=== PATIENT | female | born 1940 | race Caucasian/White ===

== ENCOUNTER 2023-06-17 10:46 | Inpatient (IN) | payer MEDICARE, OTHER ==
[2023-06-17 11:20] LABS: Anisocytosis Slight; Basophils % (A) 0 %; Eosinophils # (A) 0.1 k/uL (0-0.7); Eosinophils % (A) 0 %; HCT 32.8 % (34.0-46.0); HGB 10.6 gm/dL (11.4-16.0); Lymphocytes # (A) 0.9 k/uL (1.0-4.8); Lymphocytes % (A) 9 %; MCH 30.4 pg (25.0-35.0); MCHC 32.3 g/dL (31.0-37.0); MCV 93.9 fL (80.0-100.0); Mean Platelet Volume 9.5; Monocytes # (A) 0.5 k/uL (0-1.0); Monocytes % (A) 5 %; Neutrophils # (A) 8.6 k/uL (1.3-7.7); Neutrophils % (A) 84 %; Platelet Count 223 k/uL (150-450); RDW 16.6 % (11.5-15.5); WBC 10.2 k/uL (3.8-10.6)
[2023-06-17 11:26] LABS: Appearance,Urine Clear (Clear); Bilirubin,Urine Negative (Negative); Blood,Urine Negative (Negative); Color,Urine Light Yellow; Glucose,Urine (UA) Negative (Negative); Ketones,Urine Negative (Negative); Leukocyte Esterase,Urine Negative (Negative); Nitrite,Urine Negative (Negative); Protein,Urine Negative (Negative); Specific Gravity,Urine 1.022 (1.001-1.035); Urobilinogen,Urine <2.0 mg/dL (<2.0)
[2023-06-17 11:31] LABS: ALT 17 U/L (4-34); AST 24 U/L (14-36); African American GFR (CKD) 47 (>60 ml/min/1.73 sqM); Albumin 3.6 g/dL (3.5-5.0); Alkaline Phosphatase 87 U/L (38-126); Anion Gap 8 mmol/L; Blood Urea Nitrogen 52 mg/dL (7-17); Calcium 8.9 mg/dL (8.4-10.2); Carbon Dioxide 26 mmol/L (22-30); Chloride 104 mmol/L (98-107); Glucose 132 mg/dL (74-99); Non-African American GFR(CKD) 41 (>60 ml/min/1.73 sqM); Potassium 4.4 mmol/L (3.5-5.1); Sodium 138 mmol/L (137-145); Total Bilirubin 0.6 mg/dL (0.2-1.3); Total Protein 6.3 g/dL (6.3-8.2)
[2023-06-17 11:35] LABS: INR 0.8 (<1.2); Prothrombin Time 9.5 sec (10.0-12.5)
[2023-06-17 11:38] LABS: Partial Thromboplastin Time 21.8 sec (22.0-30.0)
--- NOTE | 2023-06-17 11:38 | ED ---
General Adult HPI - General Chief complaint: Shortness of Breath Stated complaint: AMS Time Seen by Provider: 06/17/23 10:50 Source: EMS Mode of arrival: EMS Limitations: no limitations - History of Present Illness Initial comments: 83-year-old female with past medical history of developmental delay who presents emergency department with shortness of breath. She does present from [facility]. The niece provides the history. States that the patient was recently hospitalized at [facility] and then transferred down to [facility]. Patient had an increase in her Risperdal dose and had a change in her mental status. They thought that the patient was having questionable seizures and therefore she was hospitalized for 2 days. During her hospitalization the niece thought that the patient was having a wet cough with shortness of breath. They treated her with IV Lasix and discharged her back to her facility. At [facility] the physician noted that the patient was continuing to be short of breath with a wet cough. He started her on azithromycin yesterday. He also ordered albuterol treatments however the insurance did not approve of this. This morning the patient was transferred to our facility due to hypoxia. EMS found the patient to be saturating 81% on room air. Patient does not wear oxygen. She has no underlying lung conditions such as asthma or COPD. The patient does have a low-grade fever. No nausea or vomiting. No sick contacts. Patient denies any chest pain. No other alleviating, precipitating modifying factors - Related Data Home Medications Medication Instructions Recorded Confirmed Acetaminophen [Tylenol Arthritis] 650 mg PO TID 06/17/23 06/17/23 Albuterol Nebulized [Ventolin 2.5 mg INHALATION RT-TID 06/17/23 06/17/23 Nebulized] Ammonium Lactate Lotion 1 applic TOPICAL BID PRN 06/17/23 06/17/23 [Lac-Hydrin 12% Lotion] Azithromycin [Zithromax Z Pack] See Taper PO DIRECTED 06/17/23 06/17/23 Benzonatate [Tessalon Perles] 200 mg PO TID PRN 06/17/23 06/17/23 Benztropine Mesylate [Cogentin] 0.5 mg PO DAILY 06/17/23 06/17/23 Cholecalciferol [Vitamin D3 (25 25 mcg PO DAILY 06/17/23 06/17/23 Mcg = 1000 Iu)] Levothyroxine Sodium [Synthroid] 75 mcg PO DAILY 06/17/23 06/17/23 Loperamide [Imodium] 2 mg PO DIRECTED PRN 06/17/23 06/17/23 Loratadine [Claritin] 10 mg PO HS 06/17/23 06/17/23 Melatonin 10 mg PO HS 06/17/23 06/17/23 Omeprazole 40 mg PO DAILY 06/17/23 06/17/23 amLODIPine [Norvasc] 10 mg PO DAILY 06/17/23 06/17/23 guaiFENesin [guaiFENesin Oral 1 dose PO DIRECTED 06/17/23 06/17/23 Solution] lisinopriL [Zestril] 10 mg PO HS 06/17/23 06/17/23 risperiDONE [RisperDAL] 0.5 mg PO BID 06/17/23 06/17/23 Allergies Allergy/AdvReac Type Severity Reaction Status Date / Time No Known Allergies Allergy Verified 06/17/23 11:35 Review of Systems ROS Statement: Those systems with pertinent positive or pertinent negative responses have been documented in the HPI. ROS Other: All systems not noted in ROS Statement are negative. Past Medical History Past Medical History: Unable to Obtain Past Surgical History: Unable to Obtain General Exam Limitations: altered mental status General appearance: alert, in no apparent distress Head exam: Present: atraumatic, normocephalic, normal inspection Eye exam: Present: normal appearance ENT exam: Present: normal exam, mucous membranes moist Neck exam: Present: normal inspection. Absent: tenderness, meningismus, lymphadenopathy Respiratory exam: Present: rales Cardiovascular Exam: Present: regular rate, normal rhythm, normal heart sounds. Absent: systolic murmur, diastolic murmur, rubs, gallop, clicks GI/Abdominal exam: Present: soft, normal bowel sounds. Absent: distended, tenderness, guarding, rebound, rigid Course Vital Signs 06/17/23 06/17/23 06/17/23 10:47 10:50 10:57 Temperature 100.3 F H Pulse Rate 86 Respiratory 20 18 Rate Blood Pressure 118/53 O2 Sat by Pulse 83 L 88 L Oximetry 06/17/23 06/17/23 06/17/23 10:59 11:02 11:30 Temperature 98.6 F Pulse Rate 74 65 Respiratory 17 20 Rate Blood Pressure 114/48 114/55 O2 Sat by Pulse 88 L 90 L 97 Oximetry 06/17/23 06/17/23 06/17/23 12:05 13:00 14:09 Temperature 97.6 F Pulse Rate 64 64 60 Respiratory 19 16 17 Rate Blood Pressure 105/47 109/52 101/46 O2 Sat by Pulse 97 99 98 Oximetry 06/17/23 06/17/23 06/17/23 15:15 16:07 17:27 Temperature 97.8 F 97.8 F Pulse Rate 66 62 61 Respiratory 17 17 17 Rate Blood Pressure 115/49 106/46 102/49 O2 Sat by Pulse 97 98 95 Oximetry - Reevaluation(s) Reevaluation #1: Source of infection is identified at 1150 as patient has chest x-ray which demonstrates pneumonia 06/17/23 14:18 Medical Decision Making - Medical Decision Making Was pt. sent in by a medical professional or institution (, PA, CALENDER MACHINE OPERATOR HELPER, urgent care, hospital, or custodial...) When possible be specific @ -Patient sent in from her ECF home Did you speak to anyone other than the patient for history (EMS, parent, family, police, friend...)? What history was obtained from this source @ -Spoke with the patient's niece for history Did you review nursing and triage notes (agree or disagree)? Why? @ -I reviewed and agree with nursing and triage notes Were old charts reviewed (outside hosp., previous admission, EMS record, old EKG, old radiological studies, urgent care reports/EKG's, custodial records)? Report findings @ -I reviewed the patient's medication list from her ECF home Differential Diagnosis (chest pain, altered mental status, abdominal pain women, abdominal pain men, vaginal bleeding, weakness, fever, dyspnea, syncope, headache, dizziness, GI bleed, back pain, seizure, CVA, palpatations, mental health, musculoskeletal)? @ -Differential Dyspnea: Coronary syndrome, arrhythmia, tamponade, asthma, COPD, pulmonary embolism, pneumonia, pneumothorax, pulmonary effusion, anaphylaxis, diabetic ketoacidosis, flailed chest, pulmonary contusion, diaphragmatic rupture, anemia, neuromuscular, this is not meant to be an all-inclusive list. EKG interpreted by me (3pts min.). @ -Yes and demonstrates sinus rhythm with a rate of 75. W[place] interval 177. QRS 97. QTc of 383. No acute ST segment elevation. Inverted T wave lead III X-rays interpreted by me (1pt min.). @ -Yes and demonstrates left lower lobe pneumonia CT interpreted by me (1pt min.). @ -None done U/S interpreted by me (1pt. min.). @ -None done What testing was considered but not performed or refused? (CT, X-rays, U/S, labs)? Why? @ -None What meds were considered but not given or refused? Why? @ -None Did you discuss the management of the patient with other professionals (professionals i.e. Dr., PA, CALENDER MACHINE OPERATOR HELPER, lab, RT, psych nurse, healthcare social worker, solar mechanical engineer, teacher, chief fundraising officer, lining caser)? Give summary @ -Spoke with Dr. Corley for admission Was smoking cessation discussed for >3mins.? @ -No Was critical care preformed (if so, how long)? @ -No Were there social determinants of health that impacted care today? How? (Homelessness, low income, unemployed, alcoholism, drug addiction, transportation, low edu. Level, literacy, decrease access to med. care, fci, rehab)? @ -Patient resides in [facility] Was there de-escalation of care discussed even if they declined (Discuss DNR or withdrawal of care, Hospice)? DNR status @ -No What co-morbidities impacted this encounter? (DM, HTN, Smoking, COPD, CAD, Cancer, CVA, ARF, Chemo, Hep., AIDS, mental health diagnosis, sleep apnea, morb id obesity)? @ -Developmental delay Was patient admitted / discharged? Hospital course, mention meds given and route, prescriptions, significant lab abnormalities, going to OR and other pertinent info. @ -Upon arrival patient was seen and evaluated in room 4. Thorough history and physical exam was performed. Patient is hypoxic at 84% on room air. She is placed on 4 L and then up to 6 L to maintain saturations of low 90s. Laboratory studies are conducted. Chest x-ray was performed which demonstrates pneumonia. Due to patient's hypoxia she will require admission. Spoke with the family who is agreeable to this. She is initiated on Rocephin and azithromycin as well as DuoNeb breathing treatments. Spoke with Dr. Corley who agreed to admit the patient Undiagnosed new problem with uncertain prognosis? @ -No Drug Therapy requiring intensive monitoring for toxicity (Heparin, Nitro, In sulin, Cardizem)? @ -No Were any procedures done? @ -No Diagnosis/symptom? @ -Acute hypoxic respiratory failure, acute pneumonia Acute, or Chronic, or Acute on Chronic? @ -Acute Uncomplicated (without systemic symptoms) or Complicated (systemic symptoms)? @ -Complicated Side effects of treatment? @ -No Exacerbation, Progression, or Severe Exacerbation? @ -No Poses a threat to life or bodily function? How? (Chest pain, [place], [place], pneumonia, PE, COPD, DKA, ARF, appy, cholecystitis, CVA, Diverticulitis, Homicidal, Suicidal, threat to staff... and all critical care pts) @ -Yes as patient is hypoxic - Lab Data Result diagrams: 06/20/23 07:11 06/20/23 07:11 Lab Results 06/17/23 06/17/23 06/17/23 Range/Units 11:04 11:06 11:06 WBC 10.2 (3.8-10.6) k/uL RBC 3.50 L (3.80-5.40) m/uL Hgb 10.6 L (11.4-16.0) gm/dL Hct 32.8 L (34.0-46.0) % MCV 93.9 (80.0-100.0) fL MCH 30.4 (25.0-35.0) pg MCHC 32.3 (31.0-37.0) g/dL RDW 16.6 H (11.5-15.5) % Plt Count 223 (150-450) k/uL MPV 9.5 Neutrophils % 84 % Lymphocytes % 9 % Monocytes % 5 % Eosinophils % 0 % Basophils % 0 % Neutrophils # 8.6 H (1.3-7.7) k/uL Lymphocytes # 0.9 L (1.0-4.8) k/uL Monocytes # 0.5 (0-1.0) k/uL Eosinophils # 0.1 (0-0.7) k/uL Basophils # 0.0 (0-0.2) k/uL Anisocytosis Slight PT 9.5 L (10.0-12.5) sec INR 0.8 (<1.2) APTT 21.8 L (22.0-30.0) sec Sodium (137-145) mmol/L Potassium (3.5-5.1) mmol/L Chloride (98-107) mmol/L Carbon Dioxide (22-30) mmol/L Anion Gap mmol/L BUN (7-17) mg/dL Creatinine (0.52-1.04) mg/dL Est GFR (CKD-EPI)AfAm (>60 ml/min/1.73 sqM) Est GFR (CKD-EPI)NonAf (>60 ml/min/1.73 sqM) Glucose (74-99) mg/dL Plasma Lactic Acid Carlos (0.7-2.0) mmol/L Calcium (8.4-10.2) mg/dL Total Bilirubin (0.2-1.3) mg/dL AST (14-36) U/L ALT (4-34) U/L Alkaline Phosphatase (38-126) U/L Troponin I (0.000-0.034) ng/mL NT-Pro-B Natriuret Pep pg/mL Total Protein (6.3-8.2) g/dL Albumin (3.5-5.0) g/dL Urine Color Urine Appearance (Clear) Urine pH (5.0-8.0) Ur Specific [place] (1.001-1.035) Urine Protein (Negative) Urine Glucose (UA) (Negative) Urine Ketones (Negative) Urine Blood (Negative) Urine Nitrite (Negative) Urine Bilirubin (Negative) Urine Urobilinogen (<2.0) mg/dL Ur Leukocyte Esterase (Negative) Influenza Type A (PCR) Not Detected (Not Detectd) Influenza Type B (PCR) Not Detected (Not Detectd) Urine Legionella Ag (Negative) RSV (PCR) Not Detected (Not Detectd) SARS-CoV-2 (PCR) Not Detected (Not Detectd) 06/17/23 06/17/23 06/17/23 Range/Units 11:06 11:06 11:06 WBC (3.8-10.6) k/uL RBC (3.80-5.40) m/uL Hgb (11.4-16.0) gm/dL Hct (34.0-46.0) % MCV (80.0-100.0) fL MCH (25.0-35.0) pg MCHC (31.0-37.0) g/dL RDW (11.5-15.5) % Plt Count (150-450) k/uL MPV Neutrophils % % Lymphocytes % % Monocytes % % Eosinophils % % Basophils % % Neutrophils # (1.3-7.7) k/uL Lymphocytes # (1.0-4.8) k/uL Monocytes # (0-1.0) k/uL Eosinophils # (0-0.7) k/uL Basophils # (0-0.2) k/uL Anisocytosis PT (10.0-12.5) sec INR (<1.2) APTT (22.0-30.0) sec Sodium 138 (137-145) mmol/L Potassium 4.4 (3.5-5.1) mmol/L Chloride 104 (98-107) mmol/L Carbon Dioxide 26 (22-30) mmol/L Anion Gap 8 mmol/L BUN 52 H (7-17) mg/dL Creatinine 1.24 H (0.52-1.04) mg/dL Est GFR (CKD-EPI)AfAm 47 (>60 ml/min/1.73 sqM) Est GFR (CKD-EPI)NonAf 41 (>60 ml/min/1.73 sqM) Glucose 132 H (74-99) mg/dL Plasma Lactic Acid Carlos 0.7 (0.7-2.0) mmol/L Calcium 8.9 (8.4-10.2) mg/dL Total Bilirubin 0.6 (0.2-1.3) mg/dL AST 24 (14-36) U/L ALT 17 (4-34) U/L Alkaline Phosphatase 87 (38-126) U/L Troponin I <0.012 (0.000-0.034) ng/mL NT-Pro-B Natriuret Pep 138 pg/mL Total Protein 6.3 (6.3-8.2) g/dL Albumin 3.6 (3.5-5.0) g/dL Urine Color Urine Appearance (Clear) Urine pH (5.0-8.0) Ur Specific [place] (1.001-1.035) Urine Protein (Negative) Urine Glucose (UA) (Negative) Urine Ketones (Negative) Urine Blood (Negative) Urine Nitrite (Negative) Urine Bilirubin (Negative) Urine Urobilinogen (<2.0) mg/dL Ur Leukocyte Esterase (Negative) Influenza Type A (PCR) (Not Detectd) Influenza Type B (PCR) (Not Detectd) Urine Legionella Ag (Negative) RSV (PCR) (Not Detectd) SARS-CoV-2 (PCR) (Not Detectd) 06/17/23 06/17/23 Range/Units 11:18 11:18 WBC (3.8-10.6) k/uL RBC (3.80-5.40) m/uL Hgb (11.4-16.0) gm/dL Hct (34.0-46.0) % MCV (80.0-100.0) fL MCH (25.0-35.0) pg MCHC (31.0-37.0) g/dL RDW (11.5-15.5) % Plt Count (150-450) k/uL MPV Neutrophils % % Lymphocytes % % Monocytes % % Eosinophils % % Basophils % % Neutrophils # (1.3-7.7) k/uL Lymphocytes # (1.0-4.8) k/uL Monocytes # (0-1.0) k/uL Eosinophils # (0-0.7) k/uL Basophils # (0-0.2) k/uL Anisocytosis PT (10.0-12.5) sec INR (<1.2) APTT (22.0-30.0) sec Sodium (137-145) mmol/L Potassium (3.5-5.1) mmol/L Chloride (98-107) mmol/L Carbon Dioxide (22-30) mmol/L Anion Gap mmol/L BUN (7-17) mg/dL Creatinine (0.52-1.04) mg/dL Est GFR (CKD-EPI)AfAm (>60 ml/min/1.73 sqM) Est GFR (CKD-EPI)NonAf (>60 ml/min/1.73 sqM) Glucose (74-99) mg/dL Plasma Lactic Acid Carlos (0.7-2.0) mmol/L Calcium (8.4-10.2) mg/dL Total Bilirubin (0.2-1.3) mg/dL AST (14-36) U/L ALT (4-34) U/L Alkaline Phosphatase (38-126) U/L Troponin I (0.000-0.034) ng/mL NT-Pro-B Natriuret Pep pg/mL Total Protein (6.3-8.2) g/dL Albumin (3.5-5.0) g/dL Urine Color Light Yellow Urine Appearance Clear (Clear) Urine pH 5.0 (5.0-8.0) Ur Specific [place] 1.022 (1.001-1.035) Urine Protein Negative (Negative) Urine Glucose (UA) Negative (Negative) Urine Ketones Negative (Negative) Urine Blood Negative (Negative) Urine Nitrite Negative (Negative) Urine Bilirubin Negative (Negative) Urine Urobilinogen <2.0 (<2.0) mg/dL Ur Leukocyte Esterase Negative (Negative) Influenza Type A (PCR) (Not Detectd) Influenza Type B (PCR) (Not Detectd) Urine Legionella Ag Negative (Negative) RSV (PCR) (Not Detectd) SARS-CoV-2 (PCR) (Not Detectd) Disposition Clinical Impression: Hypoxia, Pneumonia Disposition: ADMITTED IP TO THIS [facility] Condition: Stable Is patient prescribed a controlled substance at d/c from ED?: No Time of Disposition: 14:21 Decision to Admit Reason: Admit from EC Decision Date: 06/17/23 Decision Time: 14:21
[2023-06-17 11:39] LABS: NT-Pro-B-Type Natriuretic Pept 138 pg/mL
--- NOTE | 2023-06-17 11:49 | XR ---
EXAMINATION TYPE: XR chest 2V DATE OF EXAM: 06/17/2023 COMPARISON: NONE HISTORY: Difficulty breathing TECHNIQUE: Frontal and lateral views of the chest are obtained. FINDINGS: There is ill-defined partially consolidative opacity in the left lung base suspicious for pneumonia. The right lung is clear. There is no pleural effusion or pneumothorax. Heart and pulmonary vasculature are normal. The osseous structures are intact IMPRESSION: Acute cardiopulmonary disease as described above. The findings are suspicious for left l ower lobe pneumonia. Short-term follow-up to resolution is recommended.
[2023-06-17] MEDS ORDERED: IPRATROPIUM-ALBUTEROL 3 ML NEB INHALATION PRN (14:18)
[2023-06-17] MEDS ORDERED: PNEUMONIA PROTOCOL UTILIZED 1 EACH MISC PO PRN (14:18)
[2023-06-17] MEDS ORDERED: ACETAMINOPHEN TAB 325 MG TAB PO PRN ×2 (15:03→16:40)
[2023-06-17] MEDS: AZITHROMYCIN 500 MG in SODIUM CHLORIDE 0.9% 250 ML IVPB STA (15:19)
--- NOTE | 2023-06-17 16:44 | P.HPIM ---
History of Present Illness H&P Date: 06/17/23 Patient is a 83-year-old female with history of developmental delay, hypertension, hypothyroidism, psychotic disorder presenting from nursing facility with shortness of breath. Patient unable to provide meaningful history patient was reportedly hospitalized recently for questionable seizures, was also noticed to have increased cough and shortness of breath, started on IV Lasix and discharged back to facility. Yesterday at the facility patient was started on azithromycin, and breathing treatments but remained hypoxic which brought her into our hospital. Denies smoking, alcohol use or illicit drug use. In the ED, temperature was 100.3, pulse 86, respiratory 20, blood pressure 118 /53, saturating at 83% on room air. WBC 10.2, hemoglobin 10.6, BUN 52, creatinine 1.24, unknown baseline, troponin negative, proBNP 138, urinalysis negative, respiratory viral panel negative. Chest x-ray independently interpreted, shows left lower lobe opacity. EKG independently interpreted, show s normal sinus rhythm. Patient given IV azithromycin and IV ceftriaxone in the ED. Admitted for community-acquired pneumonia. Pertinent positives and negatives as discussed in HPI, a complete review of systems was performed and all other systems are negative. Patient seen and examined at bedside. Vital signs reviewed General: nontoxic, no distress, appears at stated age Derm: warm, dry Head: atraumatic, normocephalic, symmetric Eyes: EOMI, no lid lag, anicteric sclera, pupils equal round reactive to light ENT: Nose and ears atraumatic Neck: No thyromegaly, supple Mouth: no lip lesion, mucus membranes moist Cardiovascular: S1S2 reg, systolic murmur, no edema Lungs: Bibasilar Rales, no accessory muscle use, supplemental oxygen Abdominal: soft, nontender to palpation, no guarding, no appreciable organomegaly Ext: no gross muscle atrophy, muscle strength muscle strength 3 out of 5 in all 4 extremities, no contractures Neuro: CN II-XII grossly intact Psych: Alert, oriented, appropriate affect Assessment/Plan: Active: Acute hypoxic respiratory failure Community-acquired pneumonia -Continue to wean oxygen, continue azithromycin 500 mg oral every 24 hours, IV ceftriaxone 2 g every 24 hours -Blood cultures, sputum cultures, Legionella urine antigen pending -On DuoNeb every 4 hours as needed Normocytic anemia, unknown baseline Acute kidney injury versus chronic kidney disease, unknown baseline creatinine -No active bleeding, making urine -Repeat CBC and BMP tomorrow -Hold lisinopril Debility -PT OT consult Chronic: Developmental delay Hypertension Hypothyroidism GERD Psychotic disorder The patient is admitted with an anticipated greater than 2 midnight stay as inp atient status for evaluation of acute hypoxic respiratory failure. Surrogate decision-maker: Guardian CODE STATUS: Full code DVT prophylaxis: Subcu heparin Anticipated discharge date: Pending clinical course Anticipated discharge place: Pending clinical course A total of 55 minutes was spent on the care of this complex patient more than 50% of the time was spent in counseling and care coordination. Past Medical History Past Medical History: Unable to Obtain Past Surgical History: Unable to Obtain Medications and Allergies Home Medications Medication Instructions Recorded Confirmed Type Acetaminophen [Tylenol Arthritis] 650 mg PO TID 06/17/23 06/17/23 History Albuterol Nebulized [Ventolin 2.5 mg INHALATION RT-TID 06/17/23 06/17/23 History Nebulized] Ammonium Lactate Lotion 1 applic TOPICAL BID PRN 06/17/23 06/17/23 History [Lac-Hydrin 12% Lotion] Azithromycin [Zithromax Z Pack] See Taper PO DIRECTED 06/17/23 06/17/23 History Benzonatate [Tessalon Perles] 200 mg PO TID PRN 06/17/23 06/17/23 History Benztropine Mesylate [Cogentin] 0.5 mg PO DAILY 06/17/23 06/17/23 History Cholecalciferol [Vitamin D3 (25 25 mcg PO DAILY 06/17/23 06/17/23 History Mcg = 1000 Iu)] Levothyroxine Sodium [Synthroid] 75 mcg PO DAILY 06/17/23 06/17/23 History Loperamide [Imodium] 2 mg PO DIRECTED PRN 06/17/23 06/17/23 History Loratadine [Claritin] 10 mg PO HS 06/17/23 06/17/23 History Melatonin 10 mg PO HS 06/17/23 06/17/23 History Omeprazole 40 mg PO DAILY 06/17/23 06/17/23 History amLODIPine [Norvasc] 10 mg PO DAILY 06/17/23 06/17/23 History guaiFENesin [guaiFENesin Oral 1 dose PO DIRECTED 06/17/23 06/17/23 History Solution] lisinopriL [Zestril] 10 mg PO HS 06/17/23 06/17/23 History risperiDONE [RisperDAL] 0.5 mg PO BID 06/17/23 06/17/23 History Allergies Allergy/AdvReac Type Severity Reaction Status Date / Time No Known Allergies Allergy Verified 06/17/23 11:35 Physical Exam Vitals: Vital Signs Temp Pulse Resp BP Pulse Ox 06/17/23 16:07 97.8 F 62 17 106/46 98 06/17/23 15:15 66 17 115/49 97 06/17/23 14:09 60 17 101/46 98 06/17/23 13:00 97.6 F 64 16 109/52 99 06/17/23 12:05 64 19 105/47 97 06/17/23 11:30 65 20 114/55 97 06/17/23 11:02 98.6 F 74 17 114/48 90 L 06/17/23 10:59 88 L 06/17/23 10:57 18 06/17/23 10:50 88 L 06/17/23 10:47 100.3 F H 86 20 118/53 83 L Intake and Output 06/17/23 06/17/23 06/17/23 06:59 14:59 22:59 Other: Weight 53.07 kg Results CBC & Chem 7: 06/17/23 11:06 06/17/23 11:06 Labs: Abnormal Lab Results - Last 24 Hours (Table) 06/17/23 06/17/23 06/17/23 Range/Units 11:06 11:06 11:06 RBC 3.50 L (3.80-5.40) m/uL Hgb 10.6 L (11.4-16.0) gm/dL Hct 32.8 L (34.0-46.0) % RDW 16.6 H (11.5-15.5) % Neutrophils # 8.6 H (1.3-7.7) k/uL Lymphocytes # 0.9 L (1.0-4.8) k/uL PT 9.5 L (10.0-12.5) sec APTT 21.8 L (22.0-30.0) sec BUN 52 H (7-17) mg/dL Creatinine 1.24 H (0.52-1.04) mg/dL Glucose 132 H (74-99) mg/dL
[2023-06-17] MEDS: risperiDONE 0.5 MG TAB PO SCH (21:38)
[2023-06-17] MEDS: LORATADINE 10 MG TAB PO SCH (21:38)
[2023-06-17] MEDS: HEPARIN SODIUM,PORCINE 5,000 UNIT/ML 1 ML VIAL SQ SCH (23:14)
[2023-06-18] MEDS: LEVOTHYROXINE 75 MCG TAB PO SCH (06:17)
[2023-06-18] MEDS: PANTOPRAZOLE 40 MG TABLET PO SCH (06:17)
--- NOTE | 2023-06-18 07:05 | XR ---
EXAMINATION TYPE: XR chest 2V DATE OF EXAM: 06/18/2023 COMPARISON: 06/17/2023 HISTORY: Difficulty breathing TECHNIQUE: Frontal and lateral views of the chest are obtained. FINDINGS: Left lower lung partially consolidative opacity persists, possibly indicating pneumonia. The right lung remains clear. There is no pleural effusion or pneumothorax. The heart size is normal for the technique. The osseous structures are intact IMPRESSION: No change in the left lower lobe infiltrate possibly indicating pneumonia. Follow-up to resolution is recommended.
[2023-06-18 07:37] LABS: Anisocytosis Slight; Basophils % (A) 0 %; Eosinophils # (A) 0.1 k/uL (0-0.7); Eosinophils % (A) 1 %; HGB 10.3 gm/dL (11.4-16.0); Lymphocytes % (A) 14 %; MCH 29.5 pg (25.0-35.0); MCHC 31.2 g/dL (31.0-37.0); MCV 94.4 fL (80.0-100.0); Mean Platelet Volume 9.4; Monocytes # (A) 0.4 k/uL (0-1.0); Monocytes % (A) 6 %; Neutrophils # (A) 5.4 k/uL (1.3-7.7); Neutrophils % (A) 76 %; Platelet Count 222 k/uL (150-450); RDW 16.4 % (11.5-15.5)
[2023-06-18 07:56] LABS: African American GFR (CKD) 63 (>60 ml/min/1.73 sqM); Anion Gap 4 mmol/L; Blood Urea Nitrogen 42 mg/dL (7-17); Carbon Dioxide 30 mmol/L (22-30); Chloride 108 mmol/L (98-107); Glucose 107 mg/dL (74-99); Non-African American GFR(CKD) 55 (>60 ml/min/1.73 sqM); Potassium 4.4 mmol/L (3.5-5.1); Sodium 142 mmol/L (137-145)
[2023-06-18] MEDS: BENZTROPINE MESYLATE 0.5 MG TAB PO SCH (08:26)
[2023-06-18] MEDS: amLODIPine 10 MG TAB PO SCH (08:26)
--- NOTE | 2023-06-18 11:30 | P.PN ---
Subjective Progress Note Date: 06/18/23 No new copmlaints today. Had coughing episodes while trying to take PO. ST consult is in, and pt is NPO. Gen: In NAD, non-toxic HEENT: normocephalic, atraumatic, hearing acuity is intant, mucous membranes moist CVS: perfusing all extremities well, no pitting edema, Respiratory: symmetric chest expansion, no accessory muscle use, GI: soft, NTTP, ND, : no suprapubic tenderness, no CVA tenderness MSK/Derm: no rashes, cyanosis Neuro: CN II-XII intact, no motor weakness, Hospital course: Patient is a 83-year-old female with history of developmental delay, hypertension, hypothyroidism, psychotic disorder presenting from nursing facility with shortness of breath. In the ED, temperature was 100.3, pulse 86, respiratory 20, blood pressure 118/53, saturating at 83% on room air. WBC 10.2, hemoglobin 10.6, BUN 52, creatinine 1.24, unknown baseline, troponin negative, proBNP 138, urinalysis negative, respiratory viral panel negative. Chest x-ray independently interpreted, shows left lower lobe opacity. EKG independently interpreted, shows normal sinus rhythm. Patient given IV azithromycin and IV ceftriaxone in the ED. Admitted for community-acquired pneumonia. Assessment/Plan: Active: Acute hypoxic respiratory failure Community-acquired pneumonia Possible component of aspiration -Continue to wean oxygen, continue azithromycin 500 mg oral every 24 hours, IV ceftriaxone 2 g every 24 hours -Blood cultures, sputum cultures, Legionella urine antigen pending -On DuoNeb every 4 hours as needed -Speech therapy consult, n.p.o. for now except for meds Normocytic anemia, unknown baseline Acute kidney injury versus chronic kidney disease, unknown baseline creatinine -No active bleeding, making urine -Repeat CBC and BMP tomorrow -Resume lisinopril Debility -PT OT consult Chronic: Developmental delay Hypertension Hypothyroidism GERD Psychotic disorder The patient is admitted with an anticipated greater than 2 midnight stay as inpatient status for evaluation of acute hypoxic respiratory failure. Surrogate decision-maker: Guardian CODE STATUS: Full code DVT prophylaxis: Subcu heparin Anticipated discharge date: Pending clinical course Anticipated discharge place: Pending clinical course A total of 55 minutes was spent on the care of this complex patient more than 50% of the time was spent in counseling and care coordination. Objective - Vital Signs Vital signs: Vital Signs Temp 98.3 F 06/18/23 08:00 Pulse 57 L 06/18/23 08:00 Resp 20 06/18/23 08:00 BP 122/66 06/18/23 08:00 Pulse Ox 95 06/18/23 08:34 FiO2 Intake & Output 06/17/23 06/18/23 06/18/23 18:59 06:59 18:59 Output Total 400 Balance -400 Weight 53.07 kg Output: Urine 400 Other: Voiding Method Diaper # Voids 1 - Labs CBC & Chem 7: 06/18/23 07:05 06/18/23 07:05 Labs: Abnormal Lab Results - Last 24 Hours (Table) 06/17/23 06/17/23 06/18/23 Range/Units 11:06 11:06 07:05 RBC 3.50 L (3.80-5.40) m/uL Hgb 10.3 L (11.4-16.0) gm/dL Hct 33.0 L (34.0-46.0) % RDW 16.4 H (11.5-15.5) % PT 9.5 L (10.0-12.5) sec APTT 21.8 L (22.0-30.0) sec Chloride (98-107) mmol/L BUN 52 H (7-17) mg/dL Creatinine 1.24 H (0.52-1.04) mg/dL Glucose 132 H (74-99) mg/dL 06/18/23 Range/Units 07:05 RBC (3.80-5.40) m/uL Hgb (11.4-16.0) gm/dL Hct (34.0-46.0) % RDW (11.5-15.5) % PT (10.0-12.5) sec APTT (22.0-30.0) sec Chloride 108 H (98-107) mmol/L BUN 42 H (7-17) mg/dL Creatinine (0.52-1.04) mg/dL Glucose 107 H (74-99) mg/dL
[2023-06-18] MEDS: AZITHROMYCIN 500 MG TAB PO SCH (16:15)
[2023-06-18] MEDS: lisinopriL 10 MG TAB PO SCH (21:07)
[2023-06-19] MEDS: hydrALAZINE HCL 25 MG TAB PO STA (04:08)
--- NOTE | 2023-06-19 13:38 | P.PN ---
Subjective Progress Note Date: 06/19/23 Hospital Course: Patient is a 83-year-old female with history of developmental delay, hypertens ion, hypothyroidism, psychotic disorder presenting from nursing facility with shortness of breath. In the ED, temperature was 100.3, pulse 86, respiratory 20, blood pressure 118/53, saturating at 83% on room air. WBC 10.2, hemoglobin 10.6, BUN 52, creatinine 1.24, unknown baseline, troponin negative, proBNP 138, urinalysis negative, respiratory viral panel negative. Chest x-ray independently interpreted, shows left lower lobe opacity. EKG independently interpreted, shows normal sinus rhythm. Patient given IV azithromycin and IV ceftriaxone in the ED. Admitted for community-acquired pneumonia. Speech therapy consulted for possible aspiration, MBS pending. Subjective: Patient seen and examined at bedside. No new complaints and no overnight events. Pertinent positives and negatives as discussed above, a complete review of systems was performed and all other systems are negative. Vitals Signs Reviewed. Gen: In NAD, non-toxic HEENT: normocephalic, atraumatic, hearing acuity is intant, mucous membranes moist CVS: perfusing all extremities well, no pitting edema, Respiratory: symmetric chest expansion, no accessory muscle use, GI: soft, NTTP, ND, : no suprapubic tenderness, no CVA tenderness MSK/Derm: no rashes, cyanosis Neuro: CN II-XII intact, no motor weakness, Data Reviewed Today: Pertinent Labs: Hemoglobin 10.3, potassium 4.4, creatinine 0.97 Imaging: Assessment and Plan: Acute hypoxic respiratory failure Community-acquired pneumonia Possible component of aspiration -Continue to wean oxygen, continue azithromycin 500 mg oral every 24 hours, IV ceftriaxone 2 g every 24 hours -Blood cultures, sputum cultures pending -On DuoNeb every 4 hours as needed -Speech therapy consulted, MBS pending Normocytic anemia, unknown baseline Acute kidney injury -No active bleeding, making urine -Repeat CBC and BMP tomorrow -Cipro has been resumed Debility -PT OT consult Chronic: Developmental delay Hypertension Hypothyroidism GERD Psychotic disorder DVT ppx: Subcu heparin Code status: DNR/DNI Anticipated discharge place: Pending clinical course Anticipated discharge time: Pending clinical course Objective - Vital Signs Vital signs: Vital Signs Temp 97.4 F L 06/19/23 12:22 Pulse 63 06/19/23 12:22 Resp 15 06/19/23 12:22 BP 118/72 06/19/23 12:22 Pulse Ox 97 06/19/23 12:22 FiO2 Intake & Output 06/18/23 06/19/23 06/19/23 18:59 06:59 18:59 Intake Total 50 Output Total 400 1 Balance -350 -1 Weight 49.5 kg Intake: Intake, IV Titration 50 Amount cefTRIAXone 2 gm In 50 Sodium Chloride 0.9% 50 ml @ 100 mls/hr IVPB Q24H [facility] Rx#:[id number] Output: Urine 400 Stool 1 Other: Voiding Method Diaper Diaper Diaper External Catheter External Catheter # Voids 1 1 - Labs CBC & Chem 7: 06/18/23 07:05 06/18/23 07:05 Labs: Microbiology - Last 24 Hours (Table) 06/17/23 11:00 Blood Culture - Preliminary Blood 06/17/23 11:10 Blood Culture - Preliminary Blood
--- NOTE | 2023-06-20 07:45 | FL ---
COMPARISON: NONE DATE OF EXAM: 06/19/2023 HISTORY: Dysphasia A number of thin and thick substances were ingested under the care of the department of speech pathol ogy. There is no evidence of aspiration. There is no evidence of obstruction. There was evidence o f penetration with nectar. There was delayed oral clearance and vallecular pooling. DAP are not provided. No images provided. IMPRESSION: 1. See above.
[2023-06-20 11:39] LABS: Basophils # (A) 0.02 X 10*3/uL (0.00-0.10); Basophils % (A) 0.4 %; Eosinophils % (A) 1.9 %; HCT 33.8 % (37.2-46.3); HGB 10.8 g/dL (12.0-15.0); Lymphocytes # (A) 0.93 X 10*3/uL (0.90-5.00); Lymphocytes % (A) 17.7 %; MCH 29.7 pg (27.0-32.0); MCV 92.9 FL (80.0-97.0); Mean Platelet Volume 11.9 FL (9.5-12.2); Monocytes # (A) 0.59 X 10*3/uL (0.20-1.00); Monocytes % (A) 11.3 %; NRBC Per 100 WBC 0 X 10*3/uL (0.00-0.01); Neutrophils # (A) 3.57 X 10*3/uL (1.80-7.70); Neutrophils % (A) 68.1 %; Platelet Count 235 X 10*3/uL (140-440); RBC 3.64 X 10*6/uL (4.10-5.20); RDW 17.1 % (11.5-14.5); WBC 5.24 X 10*3/uL (4.50-10.00)
[2023-06-20 11:42] LABS: BUN/Creat Ratio 32.38 Ratio (12.00-20.00); Blood Urea Nitrogen 25.9 mg/dL (9.0-27.0); Glucose 124 mg/dL (70-110)
[2023-06-20 11:43] LABS: Calcium 9.2 mg/dL (8.7-10.3); Carbon Dioxide 27.1 mmol/L (21.6-31.8); Chloride 108 mmol/L (96-109); Potassium 4.2 mmol/L (3.5-5.5); Sodium 145 mmol/L (135-145)
--- NOTE | 2023-06-20 15:44 | P.PN ---
Subjective Progress Note Date: 06/20/23 Hospital Course: Patient is a 83-year-old female with history of developmental delay, hypertens ion, hypothyroidism, psychotic disorder presenting from nursing facility with shortness of breath. In the ED, temperature was 100.3, pulse 86, respiratory 20, blood pressure 118/53, saturating at 83% on room air. WBC 10.2, hemoglobin 10.6, BUN 52, creatinine 1.24, unknown baseline, troponin negative, proBNP 138, urinalysis negative, respiratory viral panel negative. Chest x-ray independently interpreted, shows left lower lobe opacity. EKG independently interpreted, shows normal sinus rhythm. Patient given IV azithromycin and IV ceftriaxone in the ED. Admitted for community-acquired pneumonia. Speech therapy consulted for possible aspiration, MBS negative. Subjective: Patient seen and examined at bedside. No new complaints and no overnight events. Pertinent positives and negatives as discussed above, a complete review of systems was performed and all other systems are negative. Vitals Signs Reviewed. Gen: In NAD, non-toxic HEENT: normocephalic, atraumatic, hearing acuity is intant, mucous membranes moist CVS: perfusing all extremities well, no pitting edema, Respiratory: symmetric chest expansion, no accessory muscle use, GI: soft, NTTP, ND, : no suprapubic tenderness, no CVA tenderness MSK/Derm: no rashes, cyanosis Neuro: CN II-XII intact, no motor weakness, Data Reviewed Today: Pertinent Labs: Hemoglobin 10.8, creatinine 0.8 Imaging: MBS does not show any aspiration Assessment and Plan: Acute hypoxic respiratory failure Community-acquired pneumonia -Continue to wean oxygen, continue azithromycin 500 mg oral every 24 hours, IV ceftriaxone 2 g every 24 hours -Blood cultures no growth to date, sputum cultures pending -On DuoNeb every 4 hours as needed Normocytic anemia, unknown baseline Acute kidney injury, resolved -No active bleeding, making urine -Lisinopril has resumed Debility -PT OT consult Chronic: Developmental delay Hypertension Hypothyroidism GERD Psychotic disorder DVT ppx: Subcu heparin Code status: DNR/DNI Anticipated discharge place: Rehab Anticipated discharge time: Likely tomorrow Objective - Vital Signs Vital signs: Vital Signs Temp 97.4 F L 06/20/23 12:22 Pulse 76 06/20/23 12:22 Resp 15 06/20/23 12:22 BP 125/65 06/20/23 12:22 Pulse Ox 99 06/20/23 12:22 FiO2 Intake & Output 06/19/23 06/20/23 06/20/23 18:59 06:59 18:59 Intake Total 480 Output Total 1 1 Balance -1 479 Weight 50.5 kg Intake: Oral 480 Output: Stool 1 1 Other: Voiding Method Diaper Diaper # Voids 1 1 - Labs CBC & Chem 7: 06/20/23 07:11 06/20/23 07:11 Labs: Abnormal Lab Results - Last 24 Hours (Table) 06/20/23 06/20/23 Range/Units 07:11 07:11 RBC 3.64 L (4.10-5.20) X 10*6/uL Hgb 10.8 L (12.0-15.0) g/dL Hct 33.8 L (37.2-46.3) % RDW 17.1 H (11.5-14.5) % BUN/Creatinine Ratio 32.38 H (12.00-20.00) Ratio Glucose 124 H (70-110) mg/dL Microbiology - Last 24 Hours (Table) 06/17/23 11:00 Blood Culture - Preliminary Blood 06/17/23 11:10 Blood Culture - Preliminary Blood
--- NOTE | 2023-06-21 13:16 | P.DS ---
Providers Date of admission: 06/17/23 14:18 Expected date of discharge: 06/21/23 Attending physician: Levi Herring MD Primary care physician: Stated None Hospital Course: Discharge Diagnosis: Acute hypoxic respiratory failure Community-acquired pneumonia Normocytic anemia, unknown baseline, stable Acute kidney injury Debility Positive blood culture, contaminant Hospital Course: Patient is a 83-year-old female with history of developmental delay, hypertension, hypothyroidism, psychotic disorder presenting from nursing facility with shortness of breath. In the ED, temperature was 100.3, pulse 86, respiratory 20, blood pressure 118/53, saturating at 83% on room air. WBC 10.2, hemoglobin 10.6, BUN 52, creatinine 1.24, unknown baseline, troponin negative, proBNP 138, urinalysis negative, respiratory viral panel negative. Chest x-ray independently interpreted, shows left lower lobe opacity. EKG independently interpreted, shows normal sinus rhythm. Patient given IV azithromycin and IV ceftriaxone in the ED. Admitted for community-acquired pneumonia. Speech therapy consulted for possible aspiration, MBS negative. Patient being discharged to rehab. 1 out of 2 blood cultures came back positive, likely c ontaminant. The negative blood culture has been negative for more than 72 hours. Patient being discharged on oral antibiotics. Patient seen and examined at bedside. Vital signs reviewed and stable. Gen: In NAD, non-toxic HEENT: normocephalic, atraumatic, hearing acuity is intant, mucous membranes moist CVS: perfusing all extremities well, no pitting edema, Respiratory: symmetric chest expansion, no accessory muscle use, GI: soft, NTTP, ND, : no suprapubic tenderness, no CVA tenderness MSK/Derm: no rashes, cyanosis Neuro: CN II-XII intact, no motor weakness A total of 33 minutes of time were spent preparing this complex discharge summary. Patient was discharged on 06/21/2023 at 1044. Patient Condition at Discharge: Stable Plan - Discharge Summary Discharge Rx Participant: No New Discharge Prescriptions: Continue guaiFENesin [guaiFENesin Oral Solution] 1 dose PO DIRECTED Benzonatate [Tessalon Perles] 200 mg PO TID PRN PRN Reason: Cough Loperamide [Imodium] 2 mg PO DIRECTED PRN PRN Reason: Diarrhea Ammonium Lactate Lotion [Lac-Hydrin 12% Lotion] 1 applic TOPICAL BID PRN PRN Reason: Dry Skin risperiDONE [RisperDAL] 0.5 mg PO BID Omeprazole 40 mg PO DAILY Melatonin 10 mg PO HS Loratadine [Claritin] 10 mg PO HS Benztropine Mesylate [Cogentin] 0.5 mg PO DAILY Albuterol Nebulized [Ventolin Nebulized] 2.5 mg INHALATION RT-TID Acetaminophen [Tylenol Arthritis] 650 mg PO TID Cholecalciferol [Vitamin D3 (25 Mcg = 1000 Iu)] 25 mcg PO DAILY lisinopriL [Zestril] 10 mg PO HS Levothyroxine Sodium [Synthroid] 75 mcg PO DAILY amLODIPine [Norvasc] 10 mg PO DAILY Discontinued Azithromycin [Zithromax Z Pack] See Taper PO DIRECTED Discharge Medication List Acetaminophen [Tylenol Arthritis] 650 mg PO TID 06/17/23 [History] Albuterol Nebulized [Ventolin Nebulized] 2.5 mg INHALATION RT-TID 06/17/23 [History] Ammonium Lactate Lotion [Lac-Hydrin 12% Lotion] 1 applic TOPICAL BID PRN 06/17/23 [History] Benzonatate [Tessalon Perles] 200 mg PO TID PRN 06/17/23 [History] Benztropine Mesylate [Cogentin] 0.5 mg PO DAILY 06/17/23 [History] Cholecalciferol [Vitamin D3 (25 Mcg = 1000 Iu)] 25 mcg PO DAILY 06/17/23 [History] Levothyroxine Sodium [Synthroid] 75 mcg PO DAILY 06/17/23 [History] Loperamide [Imodium] 2 mg PO DIRECTED PRN 06/17/23 [History] Loratadine [Claritin] 10 mg PO HS 06/17/23 [History] Melatonin 10 mg PO HS 06/17/23 [History] Omeprazole 40 mg PO DAILY 06/17/23 [History] amLODIPine [Norvasc] 10 mg PO DAILY 06/17/23 [History] guaiFENesin [guaiFENesin Oral Solution] 1 dose PO DIRECTED 06/17/23 [History] lisinopriL [Zestril] 10 mg PO HS 06/17/23 [History] risperiDONE [RisperDAL] 0.5 mg PO BID 06/17/23 [History] Follow up Appointment(s)/Referral(s): Lwsol,Hnin, MD [REFERRING] - 1 Week None,Stated [Primary Care Provider] - 1-2 days Patient Instructions/Handouts: Community Acquired Pneumonia (DC) Activity/Diet/Wound Care/Special Instructions: Please see your PCP. If you don't have a PCP, please call Dr. Roque to establish as a new patient. Discharge Disposition: TRANSFER TO SNF/ECF
[2023-06-21 14:30] VITALS: BP 133/75; PULSE 82; RESP 16; TEMP 96.5
== END 2023-06-21 18:40 | DRG 193 ==
LOC: EC 10:46 → EEVIPCON 10:46 → 3SCARD 14:18 → 5NMEDONC 06-18 18:40
PROVIDERS: ADMIT Internal Medicine; ATTEND Internal Medicine
DX: J18.9 Pneumonia, unspecified organism (principal); J96.01 Acute respiratory failure with hypoxia; N17.9 Acute kidney failure, unspecified; F29 Unspecified psychosis not due to a substance or known physiological condition; E03.9 Hypothyroidism, unspecified; I10 Essential (primary) hypertension; R62.59 Other lack of expected normal physiological development in childhood; K21.9 Gastro-esophageal reflux disease without esophagitis; D64.9 Anemia, unspecified; R53.81 Other malaise; Z66 Do not resuscitate; Z79.899 Other long term (current) drug therapy; Z79.890 Hormone replacement therapy; Z79.1 Long term (current) use of non-steroidal anti-inflammatories (NSAID)
CPT/HCPCS: 36415; 71046; 74230; 80048; 80053; 81003; 83605; 83880; 84484; 85025; 85610; 85730; 87040; 87449; 87636; 93005; 94760; 96365; 96368; 99285